=== PATIENT | female | born 1950 | race Caucasian/White ===

== ENCOUNTER 2018-03-15 07:06 | Observation (INO) ==
--- NOTE | 2018-03-15 07:36 | ED ---
HPI General Chief Complaint: Altered Mental Status Stated Complaint: Poss AMS Time Seen by Provider: 03/15/18 07:17 Source: patient and family Mode of arrival: ambulatory Limitations: altered mental status History of Present Illness HPI narrative: 67-year-old female presents with her 2 sisters who are visiting from [facility] to help her out. They state that on March 08 her boss had her taken to the hospital given concerned about her mentation and they state that her workups there looked okay and was told she had a virus. About a week later the they took her to her primary care doctor and she had a CAT scan of her head and abdomen. Both showed cyst and she had an extensive workup they state and it was not cancer. They brought her here because they are concerned with her continued decline and unable to get in with a neurologist until March. The patient denies any pain or complaints other than feeling off. She can state her name and knows its [place] and that she is at [facility] but she does not know the exact date. She cannot explain to me how she feels off. Her sisters answer most questions for her. Related Data Home Medications Medication Instructions Recorded Confirmed atorvastatin 20 mg PO QPM 03/15/18 03/15/18 citalopram 20 mg PO DAILY 03/15/18 03/15/18 levothyroxine 50 mcg PO DAILY 03/15/18 03/15/18 Allergies Allergy/AdvReac Type Severity Reaction Status Date / Time No Known Allergies Allergy Verified 03/15/18 07:13 Review of Systems ROS: all other systems reviewed are negative [facility] Medical History Medical History Depression (Acute) Hyperchloremia (Acute) Hypothyroid (Acute) Social History Social History Substance History: No History of Abuse Second Hand Smoke Exposure: No Smoking Status: Never smoker How Often Do You Have a Drink Containing Alcohol: Monthly or less Recent Travel in [facility] within the Last 8 Weeks: No Recent Out of Country Travel within the Last 8 Weeks: No Immunization History Tetanus Immunization: Unsure Exam Narrative Exam Narrative: GENERAL: 67 y/o female in no apparent distress SKIN: Focused skin assessment warm/dry. HEAD: Atraumatic. Normocephalic. EYES: Pupils equal and round. No scleral icterus. No injection or drainage. ENT: No nasal bleeding or discharge. Mucous membranes pink and moist. NECK: Trachea midline. No JVD. CARDIOVASCULAR: Regular rate and rhythm. RESPIRATORY: No accessory muscle use. Clear to auscultation. Breath sounds equal bilaterally. GASTROINTESTINAL: Abdomen soft, non-tender, nondistended. MUSCULOSKELETAL: No obvious deformities. No clubbing. No cyanosis. NEUROLOGICAL: Awake and alert to name, location and date except exact day. Motor grossly within normal limits. Normal speech. Course Reevaluation(s) Reevaluation #1: Urine shows signs of infection versus contamination. Will give 1 dose of Rocephin and follow culture given she had a temp of 99.0 and altered mental status. Patient will be observed for additional workup which sisters agreed to because they do not feel comfortable with her going home Consultations Consultation #1: dr hylton agrees to observation Initial Documented Vital Signs Temperature 99.0 F 03/15/18 07:10 Pulse Rate 102 H 03/15/18 07:10 Respiratory Rate 16 03/15/18 07:10 Blood Pressure 167/92 H 03/15/18 07:10 Pulse Oximetry 98 03/15/18 07:10 Last Documented Vital Signs Temperature 99.0 F 03/15/18 07:10 Pulse Rate 98 H 03/15/18 07:25 Respiratory Rate 19 03/15/18 07:25 Blood Pressure 172/79 H 03/15/18 07:25 Pulse Oximetry 98 03/15/18 07:31 Medical Decision Making MDM Narrative Medical decision making narrative: will check workup and reeval Medical Screen Exam Complete: Yes Emergency Medical Condition: Yes Differential Diagnosis Differential Diagnosis: uti, pneumonia, intracranial, renal failure.... Lab Data Lab results reviewed: Yes I reviewed the patient's lab results. Result diagrams: 03/15/18 07:29 03/15/18 07:29 Lab Results 03/15/18 03/15/18 03/15/18 Range/Units 04:35 07:29 07:29 WBC 5.7 (4.0-11.0) th/mm3 RBC 3.68 L (4.00-5.30) mil/mm3 Hgb 12.5 (11.6-15.3) gm/dL Hct 36.4 (35.0-46.0) % MCV 98.8 (80.0-100.0) fL MCH 34.1 H (27.0-34.0) pg MCHC 34.5 (32.0-36.0) % RDW 14.7 (11.6-17.2) % Plt Count 220 (150-450) th/mm3 MPV 9.3 (7.0-11.0) fL Neut % (Auto) 66.3 (16.0-70.0) % Lymph % (Auto) 21.9 (9.0-44.0) % Benzie % (Auto) 9.6 H (0.0-8.0) % Eos % (Auto) 1.2 (0.0-4.0) % Baso % (Auto) 1.0 (0.0-2.0) % Neut # (Auto) 3.8 (1.8-7.7) th/mm3 Lymph # (Auto) 1.2 (1.0-4.8) th/mm3 Benzie # (Auto) 0.5 (0.0-0.9) th/mm3 Eos # (Auto) 0.1 (0.0-0.4) th/mm3 Baso # (Auto) 0.1 (0.0-0.2) th/mm3 WBC Differential . Differential Comment Auto diff final PT 10.3 (9.8-11.6) sec INR 1.0 Ratio Sodium (136-145) meq/L Potassium (3.5-5.1) meq/L Chloride (98-107) meq/L Carbon Dioxide (21.0-32.0) meq/L Anion Gap (5-15) meq/L BUN (7-18) mg/dL Creatinine (0.50-1.00) mg/dL Estimated GFR (>89) mL/min Random Glucose (74-106) mg/dL Lactic Acid (0.4-2.0) mmol/L Calcium (8.5-10.1) mg/dL Magnesium (1.5-2.5) mg/dL Total Bilirubin (0.2-1.0) mg/dL AST (15-37) U/L ALT (10-53) U/L Alkaline Phosphatase (45-117) U/L Ammonia (11-32) mcmol/L Total Creatine Kinase (26-192) U/L Troponin I (0.02-0.05) ng/mL Total Protein (6.4-8.2) g/dL Albumin (3.4-5.0) g/dL Urine Color Yellow (Yellw/Straw) Urine Clarity Hazy H (Clear) Urine pH 6.0 (5.0-8.5) Ur Specific [place] 1.017 (1.002-1.035) Urine Protein Negative (Neg-Trace) mg/dL Urine Glucose (UA) Negative (Negative) mg/dL Urine Ketones 20 (Negative) mg/dL Urine Occult Blood Negative (Negative) Urine Nitrate Negative (Negative) Urine Bilirubin Negative (Negative) Urine Urobilinogen Less than 2 (Less than 2) mg/dL Ur Leukocyte Esterase Negative (Negative) Urine RBC Less than 1 (0-3) /hpf Urine WBC 2 (0-5) /hpf Ur Squamous Epith Cells 3 (0-5) /hpf Urine Bacteria Many H (None) /hpf Hyaline Casts 3 (0-3) /lpf Urine Mucus Many H (Occasional) /lpf Micro UA Comment Culture indicated Ur Microscopic Review Not Reportable Urine Culture Comments Culture indicated 03/15/18 03/15/18 03/15/18 Range/Units 07:29 07:29 07:29 WBC (4.0-11.0) th/mm3 RBC (4.00-5.30) mil/mm3 Hgb (11.6-15.3) gm/dL Hct (35.0-46.0) % MCV (80.0-100.0) fL MCH (27.0-34.0) pg MCHC (32.0-36.0) % RDW (11.6-17.2) % Plt Count (150-450) th/mm3 MPV (7.0-11.0) fL Neut % (Auto) (16.0-70.0) % Lymph % (Auto) (9.0-44.0) % Benzie % (Auto) (0.0-8.0) % Eos % (Auto) (0.0-4.0) % Baso % (Auto) (0.0-2.0) % Neut # (Auto) (1.8-7.7) th/mm3 Lymph # (Auto) (1.0-4.8) th/mm3 Benzie # (Auto) (0.0-0.9) th/mm3 Eos # (Auto) (0.0-0.4) th/mm3 Baso # (Auto) (0.0-0.2) th/mm3 WBC Differential Differential Comment PT (9.8-11.6) sec INR Ratio Sodium 143 (136-145) meq/L Potassium 3.0 L (3.5-5.1) meq/L Chloride 106 (98-107) meq/L Carbon Dioxide 29.1 (21.0-32.0) meq/L Anion Gap 8 (5-15) meq/L BUN 8 (7-18) mg/dL Creatinine 0.68 (0.50-1.00) mg/dL Estimated GFR 87 L (>89) mL/min Random Glucose 130 H (74-106) mg/dL Lactic Acid 1.2 (0.4-2.0) mmol/L Calcium 8.6 (8.5-10.1) mg/dL Magnesium 2.3 (1.5-2.5) mg/dL Total Bilirubin 0.6 (0.2-1.0) mg/dL AST 29 (15-37) U/L ALT 57 H (10-53) U/L Alkaline Phosphatase 86 (45-117) U/L Ammonia Less than 10 L (11-32) mcmol/L Total Creatine Kinase 104 (26-192) U/L Troponin I Less than 0.02 L (0.02-0.05) ng/mL Total Protein 6.9 (6.4-8.2) g/dL Albumin 3.6 (3.4-5.0) g/dL Urine Color (Yellw/Straw) Urine Clarity (Clear) Urine pH (5.0-8.5) Ur Specific [place] (1.002-1.035) Urine Protein (Neg-Trace) mg/dL Urine Glucose (UA) (Negative) mg/dL Urine Ketones (Negative) mg/dL Urine Occult Blood (Negative) Urine Nitrate (Negative) Urine Bilirubin (Negative) Urine Urobilinogen (Less than 2) mg/dL Ur Leukocyte Esterase (Negative) Urine RBC (0-3) /hpf Urine WBC (0-5) /hpf Ur Squamous Epith Cells (0-5) /hpf Urine Bacteria (None) /hpf Hyaline Casts (0-3) /lpf Urine Mucus (Occasional) /lpf Micro UA Comment Ur Microscopic Review Urine Culture Comments Imaging Data Attestation: I personally reviewed and interpreted this imaging study as follows : Radiologist's impression: Chest X-Ray 03/15/18 07:17 CONCLUSION: The lungs are clear. Head CT 03/15/18 07:17 CONCLUSION: 1. No acute intracranial abnormality is identified. 2. Nonspecific subcutaneous scalp nodules. . Discharge Plan Discharge Disposition Patient Disposition: ED Admit(ED Internal Use Only) Discharge Order Discharge Orders: ED Use Only Admit Order (Routine); Ordered 03/15/18 Ordered By: Miranda Kemp Discharge Details Diagnosis: Altered mental status Physicians Team ED Provider: Miranda Kemp Primary Care Provider: NON STAFF,PROVIDER Rxs /Orders / Referrals /Forms Prescriptions: No Action atorvastatin 20 mg Tablet 20 mg PO QPM RF: 0 citalopram 20 mg Tablet 20 mg PO DAILY RF: 0 levothyroxine 50 mcg Tablet 50 mcg PO DAILY RF: 0 Discharge Interventions Interventions: Vital Signs Last Done: 03/15/18 07:25 Status ED Status: Admitted Observation Patient
[2018-03-15 07:49] LABS: Baso # (Auto) 0.1 th/mm3 (0.0-0.2); Eos # (Auto) 0.1 th/mm3 (0.0-0.4); Eos % (Auto) 1.2 % (0.0-4.0); Hematocrit 36.4 % (35.0-46.0); Hemoglobin 12.5 gm/dL (11.6-15.3); Lymph # (Auto) 1.2 th/mm3 (1.0-4.8); Lymph % (Auto) 21.9 % (9.0-44.0); Mean Corpuscular HGB Conc 34.5 % (32.0-36.0); Mean Corpuscular Hemoglobin 34.1 pg (27.0-34.0); Mean Corpuscular Volume 98.8 fL (80.0-100.0); Mean Platelet Volume 9.3 fL (7.0-11.0); Mono # (Auto) 0.5 th/mm3 (0.0-0.9); Mono % (Auto) 9.6 % (0.0-8.0); Neut # (Auto) 3.8 th/mm3 (1.8-7.7); Neut % (Auto) 66.3 % (16.0-70.0); Platelet Count 220 th/mm3 (150-450); Red Blood Count 3.68 mil/mm3 (4.00-5.30); Red Cell Distribution Width 14.7 % (11.6-17.2); White Blood Count 5.7 th/mm3 (4.0-11.0)
--- NOTE | 2018-03-15 07:52 | XR ---
EXAM DATE: 03/15/2018 7:51 AM EST AGE/SEX: 67 years / Female INDICATIONS: Patient states they are confused. CLINICAL DATA: This is the patient's initial encounter. Patient reports that signs and symptoms have been present for 1 day and indicates a pain score of 0/10. MEDICAL/SURGICAL HISTORY: None. None. COMPARISON: No prior exams available for comparison. FINDINGS: A single AP view of the chest demonstrates the lungs to be symmetrically aerated without evidence of mass, infiltrate or effusion. The cardiomediastinal contours are unremarkable. Osseous structures a re intact. CONCLUSION: The lungs are clear. Electronically signed by: Marcus Elena MD Board Certified Radiologist 03/15/2018 7:51 AM EST
[2018-03-15 07:55] LABS: Prothrombin Time 10.3 sec (9.8-11.6)
[2018-03-15 08:03] LABS: Albumin 3.6 g/dL (3.4-5.0); Anion Gap 8 meq/L (5-15); Aspartate Aminotransferase 29 U/L (15-37); Blood Urea Nitrogen 8 mg/dL (7-18); Calcium 8.6 mg/dL (8.5-10.1); Carbon Dioxide 29.1 meq/L (21.0-32.0); Chloride 106 meq/L (98-107); Glomerular Filtration Rate 87 mL/min (>89); Glucose,Random 130 mg/dL (74-106); Magnesium 2.3 mg/dL (1.5-2.5); Sodium 143 meq/L (136-145)
[2018-03-15 08:07] LABS: Alanine Aminotransferase 57 U/L (10-53); Alkaline Phosphatase 86 U/L (45-117); Creatine Kinase 104 U/L (26-192); Total Protein 6.9 g/dL (6.4-8.2)
[2018-03-15] MEDS ORDERED: Potassium Chloride 25 MEQ Effervescent Tablet PO ONE (08:08)
[2018-03-15 08:27] LABS: Bacteria,Urine Many /hpf; Bilirubin,Urine Negative (Negative); Clarity,Urine Hazy (Clear); Color,Urine Yellow (Yellw/Straw); Glucose,Urine (UA) Negative (Negative); Hyaline Casts,Urine 3 /lpf (0-3); Leukocyte Esterase,Urine Negative (Negative); Mucus,Urine Many /lpf (Occasional); Nitrite,Urine Negative (Negative); Specific Gravity,Urine 1.017 (1.002-1.035); Squamous Epithelial Cell,Urine 3 /hpf (0-5)
--- NOTE | 2018-03-15 09:15 | CT ---
EXAM DATE: 03/15/2018 8:59 AM EST AGE/SEX: 67 years / Female INDICATIONS: Altered mental status. Lethargic. CLINICAL DATA: This is the patient's initial encounter. Patient reports that signs and symptoms have been present for 1 week and indicates a pain score of 0/10. MEDICAL/SURGICAL HISTORY: . Hypothyroid. None. RADIATION DOSE: 39.05 CTDI (mGy) COMPARISON: No prior exams available for comparison. TECHNIQUE: CT of the head without contrast. Using automated exposure control and adjustment of the mA and/or kV according to patient size, radiation dose was kept as low as reasonably achievable to ob tain optimal diagnostic quality images. DICOM format image data is available electronically for revi ew and comparison. FINDINGS: Cerebrum: The ventricles are normal. No midline shift, mass lesion, hemorrhage or acute infarction. No extraaxial fluid collections are seen. 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 Posterior Fossa: The cerebellum and brainstem demonstrate no acute abnormality. The 4th ventricle is midline. The cerebellopontine angle is within normal limits. Extracranial: The visualized sinuses are clear. There are 3 subcutaneous nodules within the scalp at the high convexity. The largest measures 2 cm in the midline and is partially calcified the other to measure approximately 1.4 cm and 1.3 cm. Skull: The calvaria is intact. No skull fracture. CONCLUSION: 1. No acute intracranial abnormality is identified. 2. Nonspecific subcutaneous scalp nodules. . Electronically signed by: Marcus Childers MD Board Certified Radiologist 03/15/2018 9:14 AM EST
[2018-03-15 10:53] LABS: Thyroid Stimulating Hormone 5.71 uIU/mL (0.358-3.740)
--- NOTE | 2018-03-15 10:57 | P.HP ---
History of Present Illness Primary Care Physician: PROVIDER NON STAFF History of Present Illness: 67-year-old white female being admitted for confusion. History is mostly from the patient's daughters and the ED staff. Patient was apparently in her usual state of health until about 2 months ago when her daughters noted a decline in her ability to care for herself and deterioration in her mental status. She was last known to be fully functioning and normal as she had gone out of state to attend a wedding in December. Sometime after that in January she stopped showing up to work, and pleura went over to her house and found her in a very disheveled and unkept state with the house being unkept as well. Patient was sent over to [facility] via EMS promptly upon this finding, per the sisters they concluded acute viral illness that contributed to some dehydration and they recommended outpatient follow-up with a PCP and with a neurologist. CT scan of the brain at that time on 03/08 no acute infarcts or any abnormal masses. 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 After discharge the patient was somewhat more physically active but then again became very inactive a few weeks later. Daughters flew in again yesterday from [place] upon a suspicion that the patient was not getting out of bed. Again they found her in a very disheveled state. They noted the patient having bizarre thinking patterns; i.e. sisters question the patient why she was not drinking enough water whereas the patient responded by saying there was very little water in the house coming from the faucet, and upon checking there was no water supply problem whatsoever. The daughters had asked the patient to get up and go use the restroom and she refused to do so from the bed. That she was brought over to the emergency department last night. Patient is supposed to be taking Lipitor and Synthroid and Celexa but there is a concern that she has been noncompliant with these medicines for the past few weeks if not few months. 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 Blood work was done involving CEA, CA 19 by her primary which has been negative. No brain MR done per [facility] radiology. ED course: In the ED here she stable vital signs, had negative head CT, chest x-ray which adamantly reviewed was also negative. Blood work was also unremarkable except for mild hypokalemia at 3.0. Possible UTI, patient given Rocephin and potassium supplements. Review of Systems unobtainable due to mental status PMFSH - History History Provided By: Patient, Family Member - Medical History Medical History: Medical History (Last Reviewed 03/15/18 @ 11:05 by Garcia Adams MD) Depression Hyperchloremia Hypothyroid - Family History Family History: Family History (Last Updated 03/15/18 @ 11:08 by Garcia Adams MD) Other Diabetes Pituitary tumor - Social History I have reviewed the patient's Social History: Yes - Tobacco History Second Hand Smoke Exposure: No Smoking Status: Never smoker - Alcohol History How Often Do You Have a Drink Containing Alcohol: Monthly or less - Substance Use History Substance History: No History of Abuse - Travel History Recent Travel in the [place] Within the Last 8 Weeks: No Recent Travel Out of the Country Within the Last 8 Weeks: No - Immunization History Tetanus Immunization: Unsure Medications and Allergies Active Medications: Active Medications Sodium Chloride (Ns Flush) 2 ml IV.FLUSH PRN PRN PRN Reason: FLUSH AFTER USING IV ACCESS Allergies Allergy/AdvReac Type Severity Reaction Status Date / Time No Known Allergies Allergy Verified 03/15/18 07:13 Home Medications Medication Instructions Recorded Confirmed Type atorvastatin 20 mg PO QPM 03/15/18 03/15/18 History citalopram 20 mg PO DAILY 03/15/18 03/15/18 History levothyroxine 50 mcg PO DAILY 03/15/18 03/15/18 History Exam Vital signs: Vital Signs 03/15/18 07:10 03/15/18 07:25 03/15/18 07:31 Temperature 99.0 F Pulse Rate 102 H 98 H Respiratory Rate 16 19 Blood Pressure 167/92 H 172/79 H Pulse Oximetry 98 98 98 03/15/18 09:54 Temperature Pulse Rate 81 Respiratory Rate 19 Blood Pressure 164/71 H Pulse Oximetry 97 Intake & Output 03/14/18 03/15/18 03/15/18 18:59 06:59 18:59 Intake Total 100 / 100 Balance 100 / 100 Weight 104.326 kg Intake: IV 100 / 100 Rocephin Inj 1,000 MG In NS Inj 100 / 100 100 ML @ 200 mls/hr IV.SIG ONCE ONE Rx#:[id number] Narrative: VS: afebrile GENERAL: Well-nourished elderly white female, obese, lying in bed, awake, no acute distress SKIN: Warm and dry. EYES: Pupils equal and round. No scleral icterus. No injection or drainage. ENT: No nasal bleeding or discharge. Mucous membranes pink and moist. CARDIOVASCULAR: Regular rate and rhythm. no murmurs RESPIRATORY: No accessory muscle use. Clear to auscultation. Breath sounds equal bilaterally. GASTROINTESTINAL: Abdomen soft, non-tender, nondistended. Extremities: No clubbing, cyanosis, or edema. No obvious deformities. MUSCULOSKELETAL: 4/5 bilateral hip flexor strength, intact dorsiflexion and plantar flexion of both feet, 4/5 proximal upper extremity strength including fist medical lab tech instructor bilaterally NEUROLOGICAL: Awake and alert. No obvious cranial nerve deficits. No facial droop nor slurred speech noted. Intact sensation to light finger touch over bilateral anterior shins, proximal forearms, and anterior face. Extraocular motions intact, slow but intact finger to finger to nose bilaterally. Diminished patellar reflexes bilaterally PSYCHIATRIC: Has a flat affect. Patient demonstrates orientation to self, place , time, and has some limited insight towards her hospitalization saying that she is not "taking care" of herself. Results - Labs CBC & Chem 7: 03/15/18 07:29 03/15/18 07:29 Labs: Laboratory Results - last 24 hr 03/15/18 03/15/18 03/15/18 04:35 07:28 07:29 WBC 5.7 RBC 3.68 L Hgb 12.5 Hct 36.4 MCV 98.8 MCH 34.1 H MCHC 34.5 RDW 14.7 Plt Count 220 MPV 9.3 Neut % (Auto) 66.3 Lymph % (Auto) 21.9 [place] % (Auto) 9.6 H Eos % (Auto) 1.2 Baso % (Auto) 1.0 Neut # (Auto) 3.8 Lymph # (Auto) 1.2 [place] # (Auto) 0.5 Eos # (Auto) 0.1 Baso # (Auto) 0.1 WBC Differential . Differential Comment Auto diff final PT INR Sodium Potassium Chloride Carbon Dioxide Anion Gap BUN Creatinine Estimated GFR Random Glucose Lactic Acid Calcium Magnesium Total Bilirubin AST ALT Alkaline Phosphatase Ammonia Total Creatine Kinase Troponin I Total Protein Albumin Vitamin B12 372 TSH 5.710 H Urine Color Yellow Urine Clarity Hazy H Urine pH 6.0 Ur Specific [place] 1.017 Urine Protein Negative Urine Glucose (UA) Negative Urine Ketones 20 Urine Occult Blood Negative Urine Nitrate Negative Urine Bilirubin Negative Urine Urobilinogen Less than 2 Ur Leukocyte Esterase Negative Urine RBC Less than 1 Urine WBC 2 Ur Squamous Epith Cells 3 Urine Bacteria Many H Hyaline Casts 3 Urine Mucus Many H Micro UA Comment Culture indicated Ur Microscopic Review Not Reportable Urine Culture Comments Culture indicated 03/15/18 03/15/18 03/15/18 07:29 07:29 07:29 WBC RBC Hgb Hct MCV MCH MCHC RDW Plt Count MPV Neut % (Auto) Lymph % (Auto) [place] % (Auto) Eos % (Auto) Baso % (Auto) Neut # (Auto) Lymph # (Auto) [place] # (Auto) Eos # (Auto) Baso # (Auto) WBC Differential Differential Comment PT 10.3 INR 1.0 Sodium 143 Potassium 3.0 L Chloride 106 Carbon Dioxide 29.1 Anion Gap 8 BUN 8 Creatinine 0.68 Estimated GFR 87 L Random Glucose 130 H Lactic Acid 1.2 Calcium 8.6 Magnesium 2.3 Total Bilirubin 0.6 AST 29 ALT 57 H Alkaline Phosphatase 86 Ammonia Total Creatine Kinase 104 Troponin I Less than 0.02 L Total Protein 6.9 Albumin 3.6 Vitamin B12 TSH Urine Color Urine Clarity Urine pH Ur Specific [place] Urine Protein Urine Glucose (UA) Urine Ketones Urine Occult Blood Urine Nitrate Urine Bilirubin Urine Urobilinogen Ur Leukocyte Esterase Urine RBC Urine WBC Ur Squamous Epith Cells Urine Bacteria Hyaline Casts Urine Mucus Micro UA Comment Ur Microscopic Review Urine Culture Comments 03/15/18 07:29 WBC RBC Hgb Hct MCV MCH MCHC RDW Plt Count MPV Neut % (Auto) Lymph % (Auto) [place] % (Auto) Eos % (Auto) Baso % (Auto) Neut # (Auto) Lymph # (Auto) [place] # (Auto) Eos # (Auto) Baso # (Auto) WBC Differential Differential Comment PT INR Sodium Potassium Chloride Carbon Dioxide Anion Gap BUN Creatinine Estimated GFR Random Glucose Lactic Acid Calcium Magnesium Total Bilirubin AST ALT Alkaline Phosphatase Ammonia Less than 10 L Total Creatine Kinase Troponin I Total Protein Albumin Vitamin B12 TSH Urine Color Urine Clarity Urine pH Ur Specific [place] Urine Protein Urine Glucose (UA) Urine Ketones Urine Occult Blood Urine Nitrate Urine Bilirubin Urine Urobilinogen Ur Leukocyte Esterase Urine RBC Urine WBC Ur Squamous Epith Cells Urine Bacteria Hyaline Casts Urine Mucus Micro UA Comment Ur Microscopic Review Urine Culture Comments - Imaging Impressions Chest X-Ray 03/15/18 07:17 CONCLUSION: The lungs are clear. Head CT 03/15/18 07:17 CONCLUSION: 1. No acute intracranial abnormality is identified. 2. Nonspecific subcutaneous scalp nodules. . Caprini VTE Risk Assessment Caprini VTE Risk Assessment: Moderate/High Risk (score >= 2) Caprini Risk Assessment Model: Point Value = 1 Point Value = 2 Point Value = 3 Point Value = 5 Age 41-60 Minor surgery BMI > 25 kg/m2 Swollen legs Varicose veins or History of unexplained or recurrent spontaneous Oral contraceptives or hormone replacement Sepsis (< 1 month) Serious lung disease, including pneumonia (< 1 month) Abnormal pulmonary function Acute myocardial infarction Congestive heart failure (< 1 month) History of inflammatory bowel disease Medical patient at bed rest Age 61-74 Arthroscopic surgery Major open surgery (> 45 min) Laparoscopic surgery (> 45 min) Malignancy Confined to bed (> 72 hours) Immobilizing plaster cast Central venous access Age >= 75 History of VTE Family history of VTE Factor V Leiden Prothrombin [id number] Lupus anticoagulant Anticardiolipin antibodies Elevated serum homocysteine Heparin-induced thrombocytopenia Other congenital or acquired thrombophilia Stroke (< 1 month) Elective arthroplasty Hip, pelvis, or leg fracture Acute spinal cord injury (< 1 month) Prophylaxis Regimen: Total Risk Factor Score Risk Level Prophylaxis Regimen 0-1 Low Early ambulation 2 Moderate Order ONE of the following: *Sequential Compression Device (SCD) *Heparin 5000 units SQ BID 3-4 Higher Order ONE of the following medications: *Heparin 5000 units SQ TID *Enoxaparin/Lovenox 40 mg SQ daily (WT < 150 kg, CrCl > 30 mL/min) *Enoxaparin/Lovenox 30 mg SQ daily (WT < 150 kg, CrCl > 10-29 mL/min) *Enoxaparin/Lovenox 30 mg SQ BID (WT < 150 kg, CrCl > 30 mL/min) AND/OR *Sequential Compression Device (SCD) 5 or more Highest Order ONE of the following medications: *Heparin 5000 units SQ TID (Preferred with Epidurals) *Enoxaparin/Lovenox 40 mg SQ daily (WT < 150 kg, CrCl > 30 mL/min) *Enoxaparin/Lovenox 30 mg SQ daily (WT < 150 kg, CrCl > 10-29 mL/min) *Enoxaparin/Lovenox 30 mg SQ BID (WT < 150 kg, CrCl > 30 mL/min) AND *Sequential Compression Device (SCD) Assessment and Plan - Plan 67-year-old white female admitted for worsening confusion Worsening confusion, inability to care for self, possible psychosis -No focal deficits on exam CT hd and CXR neg -possibly 2/2 possible UTI -Ordering outside medical records from [facility] hospitalization -Ordering MRI of the head, neurology consult -May need a psychiatry consult after medical workup -Speech therapy with cognition evaluation Possible UTI -continue rocephin, f/u culture Mild generalized weakness Possibly secondary to confusion PT/OT -Obtain CK levels hypokalemia -replace and recheck in AM Hypothyroidism Follow-up TSH level, adjust Synthroid as warranted Depression -home celexa HLD -home lipitor heparin
[2018-03-15] MEDS ORDERED: Levothyroxine 75 MCG Tablet PO ONE (11:16)
[2018-03-15] MEDS ORDERED: Gadobutrol PF 10 MMOL/10 ML Vial (for RAD) IV.SIG ONE (14:05)
--- NOTE | 2018-03-15 14:30 | MR ---
EXAM DATE: 03/15/2018 2:14 PM EST AGE/SEX: 67 years / Female INDICATIONS: Altered mental status. CLINICAL DATA: This is the patient's initial encounter. Patient reports that signs and symptoms have been present for 1 day and indicates a pain score of 0/10. MEDICAL/SURGICAL HISTORY: None. None. COMPARISON: [facility] – [place], CT HEAD W/O CONTRAST, 03/15/2018. . TECHNIQUE: Multiplanar, multisequence examination of the brain was performed without and with 10 ml G adavist (gadobutrol) contrast as a single exam dose. FINDINGS: Cerebrum: The ventricles are normal for age. No evidence of midline shift, mass lesion, hemorrhage or acute infarction. No extraaxial fluid collections are seen. The pituitary gland and suprasellar cistern are normal in configuration. White Matter: No significant signal abnormalities are seen in the white matter. Posterior Fossa: The cerebellum and brainstem are intact. The 4th ventricle is midline. The cerebel lopontine angle is unremarkable. The cerebellar tonsils are normal in position. Diffusion Imaging: No focal areas of restricted diffusion are seen. No evidence of acute infarction . Extracranial: The visualized portions of the orbits and paranasal sinuses are unremarkable. Multiple circumscribed subcutaneous tissues scalp masses which are nonenhancing, likely sebaceous cysts or so me similar cutaneous lesion Post Contrast: No abnormal areas of parenchymal or dural enhancement. No evidence of blood-brain ba rrier breakdown. CONCLUSION: No acute intracranial findings Electronically signed by: Marcus Elena MD Board Certified Radiologist 03/15/2018 2:28 PM EST
[2018-03-15] MEDS: Heparin - SQ 10,000 UNITS/ML Vial SQ SCH ×2 (15:26→21:10)
--- NOTE | 2018-03-15 17:58 | ECG ---
Date Performed: 03/15/2018 Time Performed: 07:37:13 PTAGE: 67 years EKG: Sinus rhythm POSSIBLE LEFT ATRIAL ENLARGEMENT POSSIBLE LEFT VENTRICULAR HYPERTROPHY NONSPECIFIC ST & T-WAVE ABNOR MALITY ABNORMAL ECG NO PREVIOUS TRACING DOCTOR: Mariano Reddy Interpretating Date/Time 03/15/2018 17:56:58
[2018-03-15 19:52] LABS: ABG Base Excess 4.2 mmol/L (-2-2); ABG PCO2 37 mmHg (38-42); ABG PO2 93 mmHg (61-120)
--- NOTE | 2018-03-15 20:10 | MB ---
cc: Augie Woodward MD DATE: 03/15/2018 HISTORY OF PRESENT ILLNESS: A 67-year-old, right-handed woman with hypertension, hypercholesterolemia, hypothyroidism, some depression. She has not been on an aspirin a day. She lives by herself down here, used to live with her mother who about a year ago. She was, in December, up [place] with her sisters and everything seemed to be fine, but then she seemed little maybe sad when she left, and then she did not go to work and she was found down here. The house was a bit of a mess. She was walking around, mumbling somewhat around the house, would not sit still. She denies any fever or headache. REVIEW OF SYSTEMS: No history of diabetes, CO, stent, angioplasty, atrial fibrillation, Coumadin, renal, hepatic or pulmonary disease, lupus, ulcer, cancer, seizure, stroke. She does have a history of depression; however, was on an antidepressant. SOCIAL HISTORY: Nonsmoker or drinker, lives by herself. FAMILY HISTORY: Negative for cancer or stroke. MEDICATIONS AT HOME: 1. Thyroid medicine. 2. Citalopram 20 a day. 3. Atorvastatin. PHYSICAL EXAMINATION: VITAL SIGNS: Sinus rhythm 141/69, respirations 16, pulse 87, afebrile. Possible left atrial enlargement. There are no carotid bruits. HEART: Regular rate and rhythm. I did not detect a murmur. ABDOMEN: Mildly obese. NEUROLOGIC: Pupils are equal. Visual gregg are full. Face is symmetric. Tongue was midline. There is no drift. She had normal strength in upper and lower extremities bilaterally. DTRs are 2-3+ symmetric at the knees. Toes downgoing bilaterally. No ankle clonus. Pinprick is intact throughout. No ataxia on [id number]. She knows the year, the month. She knows she lives in [place]. She knows 10-3 is 7. She could name my glasses, the lens. She repeats normal. She is a little slow to answer. LABORATORY DATA: CBC is normal. UA is basically negative. The patient's metabolic profile normal. Glucose 130. LFTs minimally elevated. Troponin, CPK, B12, thyroid normal. Coags normal. She had an MRI of the brain done today that was normal. ASSESSMENT AND PLAN: I think she is just very depressed and she needs to come in and have psychiatry see her. She has not been thriving, doing well at home. She can get up out of bed. But neuro helms, I think she is doing well, we can check an EEG on her, but she really seems to be intact cognitively, just depressed. I talked with her and the family. She does not want to move up north does not like the cold, and the sisters do not want to move down here apparently. So, something needs to be worked out there. But, the EEG is negative, no strokes, no infarcts, no tumors, no hemorrhages. He had no evidence for encephalitis on her exam. We will also checked a little bit of labs on her. MD RUDDY Matta/irene , 07:19 PM , 07:26 PM
[2018-03-16] MEDS: Levothyroxine 75 MCG Tablet PO SCH (05:25)
[2018-03-16] MEDS: Heparin - SQ 10,000 UNITS/ML Vial SQ SCH ×3 (05:25→21:06)
--- NOTE | 2018-03-16 06:43 | P.PNNEU ---
Subjective Active Medications: Active Medications Atorvastatin Calcium (Lipitor) 20 mg PO QPM [facility] Last Admin: 03/15/18 18:40 Dose: Not Given Citalopram Hydrobromide (Celexa) 20 mg PO DAILY [facility] Cyanocobalamin (Vitamin B12) 100 mcg PO DAILY [facility] Heparin Sodium (Porcine) (Heparin Inj) 5,000 units SQ Q8HR [facility] Last Admin: 03/16/18 05:25 Dose: Not Given Ceftriaxone Sodium 1,000 mg/ (Sodium Chloride) 100 mls @ 200 mls/hr IV.SIG Q24H [facility] Levothyroxine Sodium (Synthroid) 75 mcg PO DAILY@0600 [facility] Last Admin: 03/16/18 05:25 Dose: Not Given Sodium Chloride (Ns Flush) 2 ml IV.FLUSH PRN PRN PRN Reason: FLUSH AFTER USING IV ACCESS Allergies/Adverse Reactions: Allergies Allergy/AdvReac Type Severity Reaction Status Date / Time No Known Allergies Allergy Verified 03/15/18 07:13 Physical Exam Vital signs: Vital Signs 03/15/18 07:10 03/15/18 07:25 03/15/18 07:31 Temperature 99.0 F Pulse Rate 102 H 98 H Respiratory Rate 16 19 Blood Pressure 167/92 H 172/79 H Pulse Oximetry 98 98 98 03/15/18 09:54 03/15/18 11:19 03/15/18 16:00 Temperature 98.9 F Pulse Rate 81 79 87 Respiratory Rate 19 16 16 Blood Pressure 164/71 H 145/69 H 141/69 H Pulse Oximetry 97 96 95 03/15/18 20:00 03/16/18 00:00 03/16/18 03:31 Temperature 99.3 F 98.5 F Pulse Rate 95 H 80 Respiratory Rate 12 16 12 Blood Pressure 153/71 H 149/67 H Pulse Oximetry 93 L 92 L Intake & Output 03/15/18 03/15/18 03/16/18 06:59 18:59 06:59 Intake Total 340 / 340 Balance 340 / 340 Weight 104.32 kg Intake: IV 100 / 100 Rocephin Inj 1,000 MG In NS Inj 100 / 100 100 ML @ 200 mls/hr IV.SIG ONCE ONE Rx#:[id number] Oral 240 / 240 Other: # Voids 1 Weight On Admission 104.32 kg Narrative: sys doesnt know month or yr asked the date Objective Laboratory Results - last 24 hr 03/15/18 03/15/18 03/15/18 04:35 07:28 07:29 WBC 5.7 RBC 3.68 L Hgb 12.5 Hct 36.4 MCV 98.8 MCH 34.1 H MCHC 34.5 RDW 14.7 Plt Count 220 MPV 9.3 Neut % (Auto) 66.3 Lymph % (Auto) 21.9 Glades % (Auto) 9.6 H Eos % (Auto) 1.2 Baso % (Auto) 1.0 Neut # (Auto) 3.8 Lymph # (Auto) 1.2 Glades # (Auto) 0.5 Eos # (Auto) 0.1 Baso # (Auto) 0.1 WBC Differential . Differential Comment Auto diff final PT INR Puncture Site Patient Temperature O2 Saturation ABG pH ABG pCO2 ABG pO2 ABG HCO3 ABG O2 Content ABG Base Excess ABG Methemoglobin Eulalio Test Hemoglobin Carboxyhemoglobin O2 Delivery Device Inspired O2 Critical Value Sodium Potassium Chloride Carbon Dioxide Anion Gap BUN Creatinine Estimated GFR Random Glucose Lactic Acid Calcium Magnesium Total Bilirubin AST ALT Alkaline Phosphatase Ammonia Total Creatine Kinase Troponin I Total Protein Albumin Vitamin B12 372 TSH 5.710 H Urine Color Yellow Urine Clarity Hazy H Urine pH 6.0 Ur Specific Alexander 1.017 Urine Protein Negative Urine Glucose (UA) Negative Urine Ketones 20 Urine Occult Blood Negative Urine Nitrate Negative Urine Bilirubin Negative Urine Urobilinogen Less than 2 Ur Leukocyte Esterase Negative Urine RBC Less than 1 Urine WBC 2 Ur Squamous Epith Cells 3 Urine Bacteria Many H Hyaline Casts 3 Urine Mucus Many H Micro UA Comment Culture indicated Ur Microscopic Review Not Reportable Urine Culture Comments Culture indicated 03/15/18 03/15/18 03/15/18 07:29 07:29 07:29 WBC RBC Hgb Hct MCV MCH MCHC RDW Plt Count MPV Neut % (Auto) Lymph % (Auto) Glades % (Auto) Eos % (Auto) Baso % (Auto) Neut # (Auto) Lymph # (Auto) Glades # (Auto) Eos # (Auto) Baso # (Auto) WBC Differential Differential Comment PT 10.3 INR 1.0 Puncture Site Patient Temperature O2 Saturation ABG pH ABG pCO2 ABG pO2 ABG HCO3 ABG O2 Content ABG Base Excess ABG Methemoglobin Eulalio Test Hemoglobin Carboxyhemoglobin O2 Delivery Device Inspired O2 Critical Value Sodium 143 Potassium 3.0 L Chloride 106 Carbon Dioxide 29.1 Anion Gap 8 BUN 8 Creatinine 0.68 Estimated GFR 87 L Random Glucose 130 H Lactic Acid 1.2 Calcium 8.6 Magnesium 2.3 Total Bilirubin 0.6 AST 29 ALT 57 H Alkaline Phosphatase 86 Ammonia Total Creatine Kinase 104 Troponin I Less than 0.02 L Total Protein 6.9 Albumin 3.6 Vitamin B12 TSH Urine Color Urine Clarity Urine pH Ur Specific Alexander Urine Protein Urine Glucose (UA) Urine Ketones Urine Occult Blood Urine Nitrate Urine Bilirubin Urine Urobilinogen Ur Leukocyte Esterase Urine RBC Urine WBC Ur Squamous Epith Cells Urine Bacteria Hyaline Casts Urine Mucus Micro UA Comment Ur Microscopic Review Urine Culture Comments 03/15/18 03/15/18 03/15/18 07:29 12:01 19:42 WBC RBC Hgb Hct MCV MCH MCHC RDW Plt Count MPV Neut % (Auto) Lymph % (Auto) Glades % (Auto) Eos % (Auto) Baso % (Auto) Neut # (Auto) Lymph # (Auto) Glades # (Auto) Eos # (Auto) Baso # (Auto) WBC Differential Differential Comment PT INR Puncture Site Right radial Patient Temperature 98.6 O2 Saturation 96 ABG pH 7.48 H ABG pCO2 37 L ABG pO2 93 ABG HCO3 28 H ABG O2 Content 16.2 ABG Base Excess 4.2 H ABG Methemoglobin 0.7 Eulalio Test + Hemoglobin 11.9 L Carboxyhemoglobin 1.0 O2 Delivery Device Room air Inspired O2 21 Critical Value No Sodium Potassium Chloride Carbon Dioxide Anion Gap BUN Creatinine Estimated GFR Random Glucose Lactic Acid Calcium Magnesium Total Bilirubin AST ALT Alkaline Phosphatase Ammonia Less than 10 L Total Creatine Kinase 92 Troponin I Total Protein Albumin Vitamin B12 TSH Urine Color Urine Clarity Urine pH Ur Specific Alexander Urine Protein Urine Glucose (UA) Urine Ketones Urine Occult Blood Urine Nitrate Urine Bilirubin Urine Urobilinogen Ur Leukocyte Esterase Urine RBC Urine WBC Ur Squamous Epith Cells Urine Bacteria Hyaline Casts Urine Mucus Micro UA Comment Ur Microscopic Review Urine Culture Comments Review/Management - Review/Management Plan: imp she slept some last pm depression some delerium at home acc to sisters needs inpt psych justice neg so far fu eeg result med team refused labs and vitals ok to dc to psych neurowise
[2018-03-16 08:11] LABS: Anion Gap 8 meq/L (5-15); Blood Urea Nitrogen 7 mg/dL (7-18); Calcium 8.4 mg/dL (8.5-10.1); Carbon Dioxide 25.9 meq/L (21.0-32.0); Chloride 108 meq/L (98-107); Glomerular Filtration Rate Greater Than 89 mL/min (>89); Glucose,Random 96 mg/dL (74-106); Potassium 3.4 meq/L (3.5-5.1); Sodium 142 meq/L (136-145)
[2018-03-16] MEDS ORDERED: Levothyroxine 50 MCG Tablet PO SCH (09:00)
[2018-03-16 10:49] LABS: Anti-Nuclear Antibody Screen Pos (Neg)
[2018-03-16] MEDS: Citalopram 20 MG Tablet PO SCH (11:06)
--- NOTE | 2018-03-16 12:59 | P.CONPSY ---
Provisional Diagnosis Admission Date: March 15, 2018 09:43 [place] I.: Delirium due to underlying medical conditions, rule out dementia History of Present Illness Service: ER Primary Care Provider: PROVIDER NON STAFF History of Present Illness: The patient is a 67-year-old woman, domiciled along in [place], employed in the department of transportation, single, no kids, with a psychiatric history of depression, she is on Celexa 20 mg, no previous suicidal attempts, significant medical history of hypothyroidism and hypertension, who has being admitted for confusion. In the ED here she stable vital signs, had negative head CT, chest x-ray which adamantly reviewed was also negative. Blood work was also unremarkable except for mild hypokalemia at 3.0. Possible UTI, patient given Rocephin and potassium supplements. 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 Blood work was done involving CEA, CA 19 by her primary which has been negative. No brain MR done per [facility] radiology. Patient was also seen by neurology who cleared her suggesting a psychiatric consult and order EEG. Consulted to psychiatry to address potential depression and psychosis. On my psychiatric evaluation I find a patient that is calm, cooperative, but a little bit confused. The patient is oriented x3, able to repeat 3 words, but unable to remember 2 of these 3 words in 5-minute. She seems to have a decreased abstraction and ability to process and elaborate information. Her MMS is 23. She reports to be in a good mood at the moment. Denies symptoms of depression. She denies anhedonia, denies hopelessness, denies helplessness, she denies catastrophic thinking. She denies suicidal and homicidal ideation, she denies visual and auditory hallucinations. The patient reports that she wants to go home and continue her life. The patient does not seem to be aware of the reason of her hospitalization. Collateral information from sister, who was present during the interview was obtained. She says she was apparently in her usual state of health until about 2 months ago when her daughters noted a decline in her ability to care for herself and deterioration in her mental status. They believed that this could be related with depression and potentially to dementia. She was last known to be fully functioning and normal as she had gone out of state to attend a wedding in December she has been working every day and her usual job. Sometime after that in January she stopped showing up to work, and callie went over to her house and found her in a very disheveled and unkept state with the house being unkept as well. Patient was sent over to [facility] via EMS promptly upon this finding, per the sisters they concluded acute viral illness that contributed to some dehydration and they recommended outpatient follow-up with a PCP and with a neurologist. CT scan of the brain at that time on 03/08 no acute infarcts or any abnormal masses. 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 After discharge the patient was somewhat more physically active but then again became very inactive a few weeks later. 2 sisters flew in again yesterday from [place] upon a suspicion that the patient was not getting out of bed. Again they found her in a very disheveled state. They noted the patient having bizarre thinking patterns; i.e. sisters question the patient why she was not drinking enough water whereas the patient responded by saying there was very little water in the house coming from the faucet, and upon checking there was no water supply problem whatsoever. They are willing to take the patient with then back to [place] until she is better. They already arrange a level of accident in her job. PPHx:with a psychiatric history of depression, she is on Celexa 20 mg, no previous suicidal attempts, s PMHx:ignificant medical history of hypothyroidism and hypertension Family Hx: Her father had PTSD Substance Hx: No drugs, no alcohol Social Hx: woman, who was born and raised in [place], domiciled along in [place], employed in the department of transportation, single, no kids, her highest level of education is high [facility] - History History Provided By: Family Member - Medical History Medical History: Medical History (Last Reviewed 03/16/18 @ 08:07 by Inés Lester [employer], [employer]) Depression Hyperchloremia Hypothyroid - Family History Family History: Family History (Last Reviewed 03/15/18 @ 15:04 by Hector Ruelas) Other Diabetes Pituitary tumor - Tobacco History Second Hand Smoke Exposure: No Smoking Status: Never smoker - Alcohol History How Often Do You Have a Drink Containing Alcohol: Monthly or less - Substance Use History Substance History: No History of Abuse - Travel History Recent Travel in the [place] Within the Last 8 Weeks: No Recent Travel Out of the Country Within the Last 8 Weeks: No - Immunization History Tetanus Immunization: Unsure Medications and Allergies Active Medications: Active Medications Atorvastatin Calcium (Lipitor) 20 mg PO QPM [facility] Last Admin: 03/15/18 18:40 Dose: Not Given Citalopram Hydrobromide (Celexa) 20 mg PO DAILY [facility] Last Admin: 03/16/18 11:06 Dose: 20 mg Cyanocobalamin (Vitamin B12) 100 mcg PO DAILY [facility] Last Admin: 03/16/18 11:06 Dose: 100 mcg Donepezil HCl (Aricept) 5 mg PO DAILY [facility] Heparin Sodium (Porcine) (Heparin Inj) 5,000 units SQ Q8HR [facility] Last Admin: 03/16/18 05:25 Dose: Not Given Ceftriaxone Sodium 1,000 mg/ (Sodium Chloride) 100 mls @ 200 mls/hr IV.SIG Q24H [facility] Last Admin: 03/16/18 10:37 Dose: 200 mls/hr Levothyroxine Sodium (Synthroid) 75 mcg PO DAILY@0600 [facility] Last Admin: 03/16/18 05:25 Dose: Not Given Memantine (Namenda) 5 mg PO DAILY [facility] Quetiapine Fumarate (Seroquel) 25 mg PO BID [facility] Sodium Chloride (Ns Flush) 2 ml IV.FLUSH PRN PRN PRN Reason: FLUSH AFTER USING IV ACCESS Allergies Allergy/AdvReac Type Severity Reaction Status Date / Time No Known Allergies Allergy Verified 03/15/18 07:13 Home Medications Medication Instructions Recorded Confirmed Type atorvastatin 20 mg PO QPM 03/15/18 03/15/18 History citalopram 20 mg PO DAILY 03/15/18 03/15/18 History levothyroxine 50 mcg PO DAILY 03/15/18 03/15/18 History Exam Vital signs: Vital Signs 03/15/18 16:00 03/15/18 20:00 03/16/18 00:00 Temperature 98.9 F 99.3 F Pulse Rate 87 95 H Respiratory Rate 16 12 16 Blood Pressure 141/69 H 153/71 H Pulse Oximetry 95 93 L 03/16/18 03:31 03/16/18 08:23 Temperature 98.5 F 98.2 F Pulse Rate 80 75 Respiratory Rate 12 20 Blood Pressure 149/67 H 160/73 H Pulse Oximetry 92 L 97 Intake & Output 03/15/18 03/16/18 03/16/18 18:59 06:59 18:59 Intake Total 340 / 340 Balance 340 / 340 Weight 104.32 kg Intake: IV 100 / 100 Rocephin Inj 1,000 MG In NS Inj 100 / 100 100 ML @ 200 mls/hr IV.SIG ONCE ONE Rx#:[id number] Oral 240 / 240 Other: # Voids 1 Weight On Admission 104.32 kg Mental Status Examination Appearance: Appropriate Consciousness: Alert Orientation: Person, Place, Date/Time Motor Activity: Normal gait Speech: Unremarkable Language: Adequate Fund of Knowledge: Adequate Attention and Concentration: Adequate Memory: Impaired Mood: Appropriate Affect: Appropriate Thought Process & Associations: Intact Thought Content: Appropriate Hallucination Type: None Delusion Type: None Suicidal Ideation: No Suicidal Plan: No Suicidal Intention: No Homicidal Ideation: No Homicidal Plan: No Homicidal Intention: No Insight: Adequate Judgment: Adequate Assessment and Plan - Assessment (1) Major neurocognitive disorder Code(s): F01.50 - Vascular dementia without behavioral disturbance Status: Acute - Plan Plan: At the moment of my psychiatric evaluation the patient does not present any neuropsychiatric symptoms that requires an immediate psychiatric intervention. The patient reports good mood, denies depression, denies anxiety, denies brenda and psychosis. She denies suicidal and homicidal ideation, she denies visual and auditory hallucinations. The patient does present some level of attention deficit, confusion, but she is fully oriented x3. On Mini-Mental status the patient scores 23/30, presenting deficits in immediate and recent memory, abstraction, executive function, which might suggest an underlying undiagnosed dementia. However, every single potential cause of reversible dementia including delirium due to underlying medical conditions, such as UTI, electrolyte imbalance or seizures need to be still rule out. As per collateral information and the nature of the presentation, diagnosis point towards a nearly dementia. I have discussed this concern with patient and 2 sisters. I am starting a low dose of Seroquel, 25 mg twice daily to help the patient with the delirium and potential agitation. We will start Namenda 5 mg, Aricept 5 mg to his lower the progression of dementia. Continue Celexa 20 mg. Patient should continue close follow-up in outpatient. Agree with taking the patient to live with family until dementia is fully rule out. Support, motivational psych education provided. No admission indicated per Justification for Continued Inpatient Stay: No admission in psychiatry indicated
--- NOTE | 2018-03-16 13:52 | P.PNIM ---
Subjective Interval history: 67-year-old female admitted with worsening confusion, self- neglect, and delirium. Patient seen and examined, sisters at bedside, case discussed at length, patient denies shortness of breath, no chest pain no headaches no fever no chills no nausea or vomiting. Physical Exam Vital signs: Last Vital Signs Temp 98.2 F 03/16/18 08:23 Pulse 75 03/16/18 08:23 Resp 20 03/16/18 08:23 BP 160/73 H 03/16/18 08:23 Pulse Ox 97 03/16/18 08:23 Intake & Output 03/14/18 03/15/18 03/16/18 03/17/18 06:59 06:59 06:59 06:59 Intake Total 340 / 340 Balance 340 / 340 Weight 104.32 kg well-developed well-nourished obese 67-year-old white female Awake alert, confused, forgetful, flat affect Heart S1-S2 regular 1 out of 6 systolic murmur left sternal border Lungs clear bilateral diminished breath sounds no wheeze no rhonchi Abdomen soft nondistended positive bowel sounds Is remedies no clubbing cyanosis no edema Results Labs CBC & Chem 7: 03/15/18 07:29 03/16/18 07:04 Labs: Microbiology 03/15/18 04:35 Clean Catch Urine Urine Culture - Preliminary gram negative rods 03/15/18 07:29 Blood - Peripheral Aerobic Blood Culture - Preliminary No growth in 1 day 03/15/18 07:29 Blood - Peripheral Anaerobic Blood Culture - Preliminary No growth in 1 day 03/15/18 07:19 Blood - Peripheral Aerobic Blood Culture - Preliminary No growth in 1 day 03/15/18 07:19 Blood - Peripheral Anaerobic Blood Culture - Preliminary No growth in 1 day Imaging Imaging: Impressions Head MRI 03/15/18 00:00 CONCLUSION: No acute intracranial findings Assessment and Plan (1) Major neurocognitive disorder: Code(s): F01.50 - Vascular dementia without behavioral disturbance Status: Acute Plan ACUTE METABOLIC ENCEPHALOPATHY - due to uti and dehydration - treat uti. ACUTE DELIRIUM - likely due to uti and dehydration - cont supprotive care, will require a sitter, with questionable underlying dementia, will need outpt followup, will need short term rehab if not improved on dc planning, discussed with nursing. UTI poa - urine cx growing gnb - cont rocephin and fu id/sensitivity SUSPECTED DEMENTIA - started on namenda DEPRESSION - continue home citalopram DYSLIPIDEMIA - cont home statin HYPOTHYROIDISM - mild subtheraputic, dose increased dvt prophylaxis - sq heparin q 8 dispo : dc planning short term rehab versus home with family 1-2 days pending urine cx and pt eval. Progress Note: Quality VTE Deep Vein Thrombosis/Pulmonary Embolism Present on Admission: No
[2018-03-16] MEDS: QUEtiapine 25 MG Tablet PO SCH ×2 (14:55→20:34)
--- NOTE | 2018-03-16 17:41 | MG ---
cc: Robbie Metzger MD EEG NUMBER: [id number] DESCRIPTION: 6-7 Hz posterior rhythm. 20-40 microvolts with ____ frequency artifact in the frontal channels. Eye movement artifact. Reduced driving with photic stimulation. Slowing towards the end suggestive of drowsy state. Single lead EKG showing sinus rhythm. INTERPRETATION: Mild encephalopathy. Clinical correlation. MD ANANT Heard/irene/evin , 04:38 PM , 04:44 PM
[2018-03-17] MEDS: Levothyroxine 75 MCG Tablet PO SCH (06:46)
[2018-03-17] MEDS: Heparin - SQ 10,000 UNITS/ML Vial SQ SCH (06:46)
[2018-03-17] MEDS: QUEtiapine 25 MG Tablet PO SCH (09:30)
[2018-03-17] MEDS: Citalopram 20 MG Tablet PO SCH (09:30)
--- NOTE | 2018-03-17 11:58 | P.DCO ---
- Diagnosis (1) Altered mental status Status: Acute (2) Major neurocognitive disorder Status: Acute - Physical Therapy Order: Evaluate and treat, Improve ambulation, Strength and gait training - Occupational Therapy Order: Evaluate and treat, Improve ADL, Gross motor coordination - Home Health Nursing Order: Medical education, Signs/symptoms of disease process, Nursing assessment with vital signs - Case Management Consult Case Management Consult-Home Health: Yes - Certification I have seen patient Elly Alfred on 03/17/18. My clinical findings support the need for the requested home health care services because: Limited mobility due to disease progression, Deconditioned with increased weakness, High risk of falls I certify that my clinical findings support that this patient is homebound because: Unsteady gait/balance, Unsafe to leave home unassisted (1) Altered mental status Qualifiers: Altered mental status type: unspecified Qualified Code(s): R41.82 - Altered mental status, unspecified
--- NOTE | 2018-03-17 17:43 | P.DS ---
DS: Providers Date of admission: 03/15/18 09:43 Primary care physician: PROVIDER NON STAFF Consults: 03/15/18 10:58 Consult to Neurology Routine Consulting Provider: Augie Schrader Reason for Consultation: worsening confusion Notified:: Office Spoke with:: vanessa Date Notified:: 03/15/18 Time Notified:: 11:00 Ordering Provider: ASTON 03/15/18 15:19 Consult to Psychiatry Routine Consulting Provider: Luis Hernández Reason for Consultation: concern for negative characteristics possibly indicative of psychotic behavior; medical workup so far negative Notified:: Office Spoke with:: MAKENNA Date Notified:: 03/15/18 Time Notified:: 15:28 Ordering Provider: ASTON Brief History from admission: 67-year-old white female being admitted for confusion. History is mostly from the patient's daughters and the ED staff. Patient was apparently in her usual state of health until about 2 months ago when her daughters noted a decline in her ability to care for herself and deterioration in her mental status. She was last known to be fully functioning and normal as she had gone out of state to attend a wedding in December. Sometime after that in January she stopped showing up to work, and pleura went over to her house and found her in a very disheveled and unkept state with the house being unkept as well. Patient was sent over to [facility] via EMS promptly upon this finding, per the sisters they concluded acute viral illness that contributed to some dehydration and they recommended outpatient follow-up with a PCP and with a neurologist. CT scan of the brain at that time on 03/08 no acute infarcts or any abnormal masses. 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 After discharge the patient was somewhat more physically active but then again became very inactive a few weeks later. Daughters flew in again yesterday from [place] upon a suspicion that the patient was not getting out of bed. Again they found her in a very disheveled state. They noted the patient having bizarre thinking patterns; i.e. sisters question the patient why she was not drinking enough water whereas the patient responded by saying there was very little water in the house coming from the faucet, and upon checking there was no water supply problem whatsoever. The daughters had asked the patient to get up and go use the restroom and she refused to do so from the bed. That she was brought over to the emergency department last night. Patient is supposed to be taking Lipitor and Synthroid and Celexa but there is a concern that she has been noncompliant with these medicines for the past few weeks if not few months. 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 Blood work was done involving CEA, CA 19 by her primary which has been negative. No brain MR done per [facility] radiology. ED course: In the ED here she stable vital signs, had negative head CT, chest x-ray which adamantly reviewed was also negative. Blood work was also unremarkable except for mild hypokalemia at 3.0. Possible UTI, patient given Rocephin and potassium supplements. DS: Diagnosis Discharge Diagnosis (1) Altered mental status: Status: Acute (2) Major neurocognitive disorder: Status: Acute DS: Summary Patient was admitted and continued under observation she was continued on empiric IV Rocephin for urinary tract infection cultures of which grew E. coli sensitive to ciprofloxacin. Patient was seen and examined by neurology and psychiatry. She was started on Seroquel and Namenda for possible early onset dementia. Neurologically she was deemed clinically stable from neurology standpoint, her Synthroid was mildly subtherapeutic and dose was titrated to 75 mcg daily and patient was otherwise improved from mental status standpoint, but family was very concerned about her long-term ability to be independent, I had a lengthy discussion with with family regarding her condition and prognosis, and the uncertainty of whether she would resume to baseline with completion of antibiotics for the urinary tract infection. A EKG was checked for QT C prior to discharge, they were advised to return the patient should she have worsening symptoms and regarding close follow-up as an outpatient with PCP. Time Spent with Patient Total time spent providing and/or coordinating discharge services: Status at Discharge Functional status at discharge: independent ambulation Overall status at discharge: patient is progressing back to baseline Quality: VTE Deep Vein Thrombosis/Pulmonary Embolism Present on Admission: No Exam Narrative Exam Narrative: Well-developed well-nourished 67-year-old female Very flat affect , confused but oriented to person time and place, calm and following directions slowly Heart S1-S2 regular Lungs clear decreased breath sounds Abdomen obese soft nondistended positive bowel sounds Extremities no clubbing cyanosis no edema Ambulating well with PT Results Labs on day of discharge: Labs from last 24 hours 03/17/18 05:37 RPR Pending Preliminary micro results at discharge 03/15/18 07:29 Aerobic Blood Culture - Preliminary Blood - Peripheral No growth in 2 days Anaerobic Blood Culture - Preliminary No growth in 2 days 03/15/18 07:19 Aerobic Blood Culture - Preliminary Blood - Peripheral No growth in 2 days Anaerobic Blood Culture - Preliminary No growth in 2 days Impressions ITS Impressions Head MRI 03/15/18 00:00 CONCLUSION: No acute intracranial findings Chest X-Ray 03/15/18 07:17 CONCLUSION: The lungs are clear. Head CT 03/15/18 07:17 CONCLUSION: 1. No acute intracranial abnormality is identified. 2. Nonspecific subcutaneous scalp nodules. . Discharge Plan Discharge Disposition Patient Disposition: Discharge Home Discharge Condition Condition: Stable Discharge Order Discharge Orders: Discharge Order (Routine); Ordered 03/17/18 Ordered By: Lisa Kahn Physicians Team Primary Care Provider: NON STAFF,PROVIDER Attending Provider: Lisa Kahn Other Providers: Augie Schrader ; Luis Hernández Rxs /Orders / Referrals /Forms Prescriptions: New quetiapine 25 mg Tablet 25 mg PO BID Qty: 60 RF: 0 donepezil 5 mg Tablet 5 mg PO DAILY Qty: 30 RF: 0 cyanocobalamin (vitamin B-12) [Vitamin B-12] 100 mcg Tablet 100 mcg PO DAILY Qty: 0 RF: 0 levothyroxine [Synthroid] 75 mcg Tablet 75 mcg PO DAILY@0600 Qty: 30 RF: 0 memantine [Namenda] 5 mg Tablet 5 mg PO DAILY Qty: 30 RF: 0 ciprofloxacin HCl [Cipro] 500 mg tablet 500 mg PO BID Qty: 10 RF: 0 Continue atorvastatin 20 mg Tablet 20 mg PO QPM RF: 0 citalopram 20 mg Tablet 20 mg PO DAILY RF: 0 Discontinued levothyroxine 50 mcg Tablet 50 mcg PO DAILY RF: 0 Referrals: NON STAFF,PROVIDER [Primary Care Provider] - See Instructions Discharge Instructions Patient Printed Instructions: Ciprofloxacin (By mouth), Donepezil (By mouth), Quetiapine (By mouth), Folic Acid/Cyanocobalamin (By mouth), Memantine (By mouth ), Altered Mental Status (GEN) Status ED Status: Left Department Discharge Information Discharge Date/Time: 03/17/18 15:21
--- NOTE | 2018-03-19 01:17 | ECG ---
Date Performed: 03/17/2018 Time Performed: 11:27:04 PTAGE: 67 years EKG: BASELINE ARTIFACT PROBABLE Sinus rhythm NONSPECIFIC ST & T-WAVE ABNORMALITY BORDERLINE ECG INTERPRETATION BASED ON A DEFAULT AGE OF 40 YEARS Since the PREVIOUS TRACING , no significant change noted DOCTOR: Armin Hong Interpretating Date/Time 03/19/2018 01:16:51
[2018-03-19 08:50] LABS: RPR Screen For Reflex FTA Nonreactive (Nonreactive)
== END 2018-03-17 15:21 | disposition home or self-care (01) ==
LOC: NEPC 07:06 → NEDA 07:06 → NEPFCDU 12:25
PROVIDERS: ADMIT Internal Medicine; ATTEND Internal Medicine
DX: F01.50 Vascular dementia, unspecified severity, without behavioral disturbance, psychotic disturbance, mood disturbance, and anxiety; G93.41 Metabolic encephalopathy; Z91.81 History of falling; E78.00 Pure hypercholesterolemia, unspecified; E86.0 Dehydration; Z91.19 Patient's noncompliance with other medical treatment and regimen; Z79.899 Other long term (current) drug therapy; B96.20 Unspecified Escherichia coli [E. coli] as the cause of diseases classified elsewhere; E87.8 Other disorders of electrolyte and fluid balance, not elsewhere classified; Z83.3 Family history of diabetes mellitus; Z79.890 Hormone replacement therapy; R94.31 Abnormal electrocardiogram [ECG] [EKG]; E87.6 Hypokalemia; Q51.3 Bicornate uterus; I10 Essential (primary) hypertension; N39.0 Urinary tract infection, site not specified; F32.9 Major depressive disorder, single episode, unspecified; D25.9 Leiomyoma of uterus, unspecified; E03.9 Hypothyroidism, unspecified; E78.5 Hyperlipidemia, unspecified